=== PATIENT | male | born 1960 | race Two or more races ===

== ENCOUNTER 2023-02-18 03:57 | Inpatient (IN) | payer MEDICARE, OTHER ==
[2023-02-18] MEDS ORDERED: IV NS 0.9% 1,000 ML IV SCH (07:00)
[2023-02-18] MEDS ORDERED: ACETAMINOPHEN 325 MG TABLET PO PRN (07:00)
[2023-02-18] MEDS ORDERED: MORPHINE SULFATE INJ 2 MG/ML DISP.SYRIN IV PRN (07:00)
[2023-02-18] MEDS ORDERED: ONDANSETRON HCL/PF 4 MG/2 ML VIAL IVP PRN (07:00)
[2023-02-18] MEDS ORDERED: GABA300C PO (07:05)
[2023-02-18] MEDS ORDERED: OLAN10TA3 PO (07:05)
[2023-02-18] MEDS ORDERED: TRAZ150T75 PO (07:05)
[2023-02-18] MEDS ORDERED: MEGE40TA5 PO (07:05)
[2023-02-18] MEDS ORDERED: ESCI10TA PO (07:05)
[2023-02-18] MEDS ORDERED: ATOR10TA PO (07:05)
[2023-02-18] MEDS ORDERED: FERR325T23 PO (07:05)
[2023-02-18] MEDS ORDERED: QUET400T PO (07:05)
[2023-02-18] MEDS ORDERED: ZOLP10TA2 PO (07:05)
[2023-02-18] MEDS ORDERED: CHLO25TA13 PO (07:05)
[2023-02-18] MEDS ORDERED: ATEN-170 PO (07:05)
[2023-02-18] MEDS ORDERED: LISI20TA30 PO (07:05)
[2023-02-18] MEDS ORDERED: BUSP10TA35 PO (07:05)
[2023-02-18] MEDS ORDERED: CLON2TAB PO (07:05)
--- NOTE | 2023-02-18 07:42 | NUR ---
MS AIR BRUSH OPERATOR NOTES: PATIENT ARRIVED VIA GURNEY DIRECT ADMIT TO [facility] AT 0605 PLACED IN BED COMFORTABLY, BED IN LOW POSITION CALL LIGHTS WITHIN REACH, NO COMPLAIN OF PAIN AND DISCOMFORT AT THIS TIME, ON O2 INHALATION AT 3LPM SATURATING WELL, PATIENT ON NJ CATHETER WITH TINGED BLOOD URINE OUTPUT, PATIENT HAS ALTERED MENTAL STATUS, WITH HISTORY OF PULLING IV LINE AND NJ CATH FROM [place], SKIN ASSESSMENT DONE AND DOCUMENTED, NO MEANINGFUL INFORMATION WAS TAKEN PATIENT IS ALTERED, INVENTORY DONE C/O SQL TECH, IV LINE AT LEFT HAND #20 WITH ONGOING NSS@75ML/HR INFUSING WELL, ON BILATERAL SOFT WRIST RESTRAINT, PATIENT KEPT CLEAN AND DRY ALL NEEDS MET INFORM INCOMING NURSE NEW TO COORDINATE REGARDING MED RECON TO INCOMING CONSTRUCTION ECONOMIST HOSPITALIST AND TO REACH OUT WITH BROTHER ROSEANNE ABOUT HIS ADMISSION, PATIENT KEPT CLEAN AND DRY ALL NEEDS MET ENDORSE TO INCOMING SHIFT.
--- NOTE | 2023-02-18 08:04 | NUR ---
MS RN OPENING NOTE Patient in bed, awake. A/O x 1, confused. On O2 at 3 LPM via NC, no SOB or s/s of distress noted. IV access on Left hand #20, hooked on NS at 75 ml/hr. Shaikh catheter in place draining to a blood tinged urine. Bilateral soft wrist restraints noted. Safety precautions in place: bed in low, locked position; siderails up x 2; call light within reach. Will continue to monitor.
[2023-02-18 08:14] LABS: BASOPHILS % (AUTO) 0.1 % (0.0-2.0); EOSINOPHILS % (AUTO) 0.4 % (0.0-6.0); HEMATOCRIT 38 % (39-51); HEMOGLOBIN 12.5 g/dL (13.5-17.5); LYMPHOCYTES # (AUTO) 0.7 K/uL (0.8-4.8); MEAN CORPUSCULAR HGB CONC 33 g/dl (31.0-36.0); MEAN CORPUSCULAR VOLUME 93 fL (80-96); MONOCYTES # (AUTO) 0.7 K/uL (0.1-1.30); MONOCYTES % (AUTO) 7.7 % (2.0-12.0); NEUTROPHILS # (AUTO) 7.5 K/uL (1.8-8.9); NEUTROPHILS % (AUTO) 83.8 % (43.0-81.0); PLATELET COUNT (AUTO) 176 K/uL (150-450)
[2023-02-18 08:19] LABS: CALCIUM, SERUM 9.4 mg/dL (8.5-10.1); POTASSIUM 5.3 mmol/L (3.5-5.1)
[2023-02-18 08:27] LABS: ALBUMIN 3.4 g/dL (3.4-5.0); BILIRUBIN,TOTAL 0.5 mg/dL (0.2-1.0); TOTAL PROTEIN, SERUM 6.9 g/dL (6.4-8.2)
[2023-02-18 08:47] VITALS: BP 112/66; TEMP 98.4; O2SAT 96
[2023-02-18 10:50] LABS: BILIRUBIN,URINE NEGATIVE (NEGATIVE); COLOR,URINE YELLOW (YELLOW); LEUKOCYTE ESTERASE ,URINE NEGATIVE (NEGATIVE); NITRITE, URINE NEGATIVE (NEGATIVE); PROTEIN,URINE TRACE mg/dl (NEGATIVE); UGLUCOSE NEGATIVE (NEGATIVE); UROBILINOGEN,URINE 0.2 EU/dL (0.2)
[2023-02-18 11:05] LABS: BACTERIA,URINE Rare /HPF (None Seen); RBC,URINE 21-50 /HPF (0-2); SQUAMOUS EPITHELIAL CELL,UR Few /HPF (None Seen); WBC,URINE 0-2 /HPF (0-3)
[2023-02-18] MEDS: IV D5/0.45 NACL 1,000 ML IV PRN ×2 (11:31→13:38)
--- NOTE | 2023-02-18 11:51 | NUR ---
RN NOTE Spoke to Adi, brother, and confirmed that patient is a resident of [facility] at [address] [facility] [address], phone number is [phone]. Called facility to verify patient's medications, per Alia, she will fax the list of medications.
[2023-02-18] MEDS ORDERED: SODIUM POLYSTYRENE SULF. PWD 15 GM UDC PO ONE (13:30)
[2023-02-18 13:54] LABS: PHOSPHORUS 4.3 mg/dL (2.5-4.9)
[2023-02-18 14:18] LABS: THYROID STIMULATING HORMONE 0.224 uIU/mL (0.358-3.74)
[2023-02-18 14:54] LABS: CREATININE, URINE 103.6 MG/DL (30.0-125.0)
[2023-02-18 14:57] LABS: POTASSIUM 4.9 mmol/L (3.5-5.1)
[2023-02-18 15:03] LABS: IRON, SERUM 16 ug/dl (50-175); TOTAL IRON BINDING CAPACITY 181 ug/dl (250-450)
[2023-02-18 15:06] LABS: BILIRUBIN,URINE 1+ (NEGATIVE); COLOR,URINE YELLOW (YELLOW); LEUKOCYTE ESTERASE ,URINE NEGATIVE (NEGATIVE); NITRITE, URINE NEGATIVE (NEGATIVE); PROTEIN,URINE TRACE mg/dl (NEGATIVE); UGLUCOSE NEGATIVE (NEGATIVE); UROBILINOGEN,URINE 0.2 EU/dL (0.2)
[2023-02-18 16:17] LABS: BACTERIA,URINE None seen /HPF (None Seen); RBC,URINE 51-80 /HPF (0-2); SQUAMOUS EPITHELIAL CELL,UR 0-2 /HPF (None Seen); WBC,URINE 0-2 /HPF (0-3)
[2023-02-18 16:18] LABS: URINE AMORPHOUS URATE Few /HPF (None Seen)
[2023-02-18] MEDS: DOCUSATE SODIUM 100 MG CAPSULE PO SCH (16:24)
[2023-02-18] MEDS: FERROUS SULFATE (325 MG) 325 MG/TAB TABLET PO SCH (16:25)
[2023-02-18 16:58] VITALS: BP 109/64; TEMP 98.3; O2SAT 96
[2023-02-18] MEDS ORDERED: LORAZEPAM INJ 2 MG/ML VIAL IV ONE (19:00)
[2023-02-18] MEDS ORDERED: OLANZAPINE 10 MG VIAL IM ONE (19:00)
--- NOTE | 2023-02-18 19:00 | NUR ---
RN NOTE Patient started getting agitated, pulled his restraints and broke them started walking down the hallway and was very confused and agitated. Code melanie was called, 2 security and 2 male nurses tried to get him back in room and in bed. Dr. Dale notified and ordered Ativan 2 mg IV one time, medication administered. Patient started calming down and was restrained back to the bed. New IV re-inserted on LFA #20, hooked back on IV fluids. Shaikh catheter intact.
--- NOTE | 2023-02-18 19:22 | NUR ---
MS RN CLOSING NOTE Patient in bed, awake. A/O x 1, confused and a little agitated. On room air, no SOB or s/s of distress noted. IV access on LFA #20, infusing NS at 75 ml/hr. Shaikh catheter in place draining to a tea colored urine. Bilateral soft wrist restraints noted. Patient kept clean and dry. Due meds given. Safety precautions in place: bed in low, locked position; siderails up x 2; call light within reach. Will endorse to night auditor nurse for AARON.
--- NOTE | 2023-02-18 19:30 | NUR ---
MS RN OPENING NOTE RECEIVED PATIENT IN BED, AWAKE, ALERT TO SELF BUT CONFUSED AND NOTED WITH SLIGHT AGITATION. AFEBRILE AND NOT IN ANY FORM OF ACUTE DISTRESS. BREATHING EVEN AND NON LABORED. WITH IV ACCESS ON LFA 20G RUNNING WITH NS AT 75ML/HR. WITH INTACT NJ CATHETER, DRAINING WELL WITH [place] COLORED URINE OUTPUT. PATIENT IS ON BILATERAL SOFT WRIST RESTRAINTS SINCE PER REPORT, HE PULLED OUT HIS CATHETER AND DURING INITIAL ROUND, PATIENT TRIED TO PULL OUT HIS CATHETER AGAIN. SAFETY MEASURES IN PLACE. KEPT BED IN LOCKED AND IN LOW POSITION. SIDE RAILS UP X2. BED ALARM ON. CALL LIGHT WITHIN EASY REACH.
[2023-02-18 19:48] LABS: THYROID STIMULATING HORMONE 0.171 uIU/mL (0.358-3.74)
[2023-02-18 20:00] VITALS: BP 126/74; TEMP 98; O2SAT 94
--- NOTE | 2023-02-18 20:10 | NUR ---
MS RN NOTE PATIENT PULLED OUT HIS CATHETER AGAIN AND WAS ABLE TO REMOVED HIS RESTRAINTS. WENT INSIDE HIS ROOM TOGETHER WITH CN AND TALKED TO HIM IN A CALM MANNER. PATIENT STILL CONFUSED BUT WAS ABLE TO REDIRECTED AND FOLLOWS INSTRUCTION. INFORMED HIM ABOUT THE RISK OF PULLING HIS CATHETER SEVERAL TIMES DURING THE SHIFT AND WANTS TO JUST TOTALLY REMOVE IT. INSPECTED THE PENILE AREA AND NOTED WITH SLIGHT TRAUMA ON THE SITE. REMOVED THE CATHETER AND PATIENT TOLERATED THE PROCEDURE WELL, NO C/O PAIN AT THIS TIME.
[2023-02-18] MEDS ORDERED: QUETIAPINE FUMARATE 100 MG TABLET PO SCH (22:00)
[2023-02-18] MEDS: QUETIAPINE FUMARATE 100 MG TABLET PO SCH (22:00)
--- NOTE | 2023-02-18 22:00 | NUR ---
MS RN NOTE PATIENT EVENTUALLY CALMED DOWN AND IS SLEEPING RIGHT NOW. ORDER FOR SEROQUEL UNABLE TO GIVE AT THIS TIME. CN MADE AWARE.
--- NOTE | 2023-02-18 23:00 | NUR ---
MS RN NOTE PATIENT WOKE UP AND WAS CONFUSED. REORIENTED AND REDIRECTED. OFFERED SOMETHING TO EAT AND WAS ABLE TO GIVE SCHEDULED SEROQUEL. CN WAS ALSO AT BEDSIDE AND MADE AWARE ABOUT THE SITUATION. INSTRUCTED THE PATIENT TO GO BACK TO SLEEP AND TAKE A REST AND HE COMPLIED.
[2023-02-19] MEDS: QUETIAPINE FUMARATE 100 MG TABLET PO SCH (00:01)
[2023-02-19] MEDS ORDERED: OLANZAPINE 10 MG VIAL IM ONE (06:33)
--- NOTE | 2023-02-19 06:39 | NUR ---
MS RN NOTE PATIENT STARTED TO GET AGITATED AGAIN AND WAS CONFUSED AND COMBATIVE. OLANZAPINE 5MG STAND BY ORDER WAS GIVEN.
--- NOTE | 2023-02-19 07:00 | NUR ---
MS RN CLOSING NOTE PATIENT IN BED, SLEEPING RIGHT NOW. BREATHING EVEN AND NON LABORED. WITH IV ACCESS ON LFA 20G RUNNING WITH D5 1/2NS AT 90ML/HR. BUT PATIENT KEEP ON PULLING OUT HIS IV LINE THE ENTIRE SHIFT. ON BILATERAL SOFT WRIST RESTRAINTS, SKIN IS INTACT AND NOTED WITH GOOD SKIN CIRCULATION ON THE SITE. MEDICATED ORDERED. SAFETY MEASURES IN PLACE. KEPT BED IN LOCKED AND IN LOW POSITION. SIDE RAILS UP X2. BED ALARM ON. CALL LIGHT WITHIN EASY REACH. ALL NURSING NEEDS ATTENDED. ENDORSED TO INCOMING SHIFT FOR CONTINUITY OF CARE.
--- NOTE | 2023-02-19 07:15 | NUR ---
RN OPENING NOTE RECEIVED PATIENT IN BED, AWAKE, CONFUSED. NOTED WITH SLIGHT AGITATION AT THIS TIME. AFEBRILE AND NOT IN ANY FORM OF ACUTE DISTRESS. BREATHING EVEN AND NON LABORED. WITH IV ACCESS ON LFA 20G. PATIENT IS ON BILATERAL SOFT WRIST RESTRAINTS ATTEMPTING TO PULL PUT RESTRAINTS. USED NON EVASIVE MEASURES FIRST. SAFETY MEASURES IN PLACE. KEPT BED IN LOCKED AND IN LOW POSITION. SIDE RAILS UP X3. BED ALARM ON. CALL LIGHT WITHIN EASY REACH. WILL CONTINUE TO MONITOR.
[2023-02-19 07:30] VITALS: BP 121/73; TEMP 99.2; O2SAT 96
--- NOTE | 2023-02-19 07:30 | NUR ---
RN NOTE- PT AMBULATING UNSTEADY IN HALLS. NOT DIRECTABLE. ATTEMPTED TO HAVE PT GO TO ROOM W SECURITY, PT SCREAMING AND BECAME COMBATIVE. BROUGHT PT TO ROOM, PLACED IN FOUR POINT RESTRAINTS DUE TO KICKING AND PUNCHING. ONCE ZYPREXA IM INJECTION BEGAN WORKING, I REMOVED LEG RESTRAINTS. PT CALMER.
[2023-02-19] MEDS ORDERED: MEGESTROL ACETATE 40 MG TABLET PO SCH (09:00)
[2023-02-19] MEDS ORDERED: FERROUS SULFATE (325 MG) 325 MG/TAB TABLET PO SCH (09:00)
[2023-02-19] MEDS ORDERED: OLANZAPINE 10 MG TABLET PO SCH (09:00)
[2023-02-19] MEDS ORDERED: GABAPENTIN 300 MG CAPSULE PO SCH (09:00)
[2023-02-19] MEDS ORDERED: ESCITALOPRAM OXALATE (10 MG) 10 MG TABLET PO SCH (09:00)
[2023-02-19] MEDS: DOCUSATE SODIUM 100 MG CAPSULE PO SCH ×2 (09:41→16:53)
[2023-02-19] MEDS: MEGESTROL ACETATE SUSP 400 MG/10 ML UDC PO SCH (09:41)
[2023-02-19] MEDS: LISINOPRIL (20MG) 20 MG TABLET PO SCH (09:42)
[2023-02-19] MEDS: ATORVASTATIN 10 MG TABLET PO SCH (09:42)
[2023-02-19] MEDS: ATENOLOL 25 MG TABLET PO SCH (09:43)
[2023-02-19] MEDS: FERROUS SULFATE (325 MG) 325 MG/TAB TABLET PO SCH ×2 (09:43→16:53)
--- NOTE | 2023-02-19 09:59 | NUR ---
WOUND CARE CONSULT: PT PRESENTS WITH DRY ABRASIONS TO LOWER EXTREMITIES AND AREAS OF DISCOLORATION TO BILATERAL HIPS, PRESENT ON ADMISSION. DISCUSSED SKIN PROTECTION WITH NURSING STAFF. PT ABLE TO ASSIST WITH TURNING AND REPOSITIONING IN BED. MD IN AGREEMENT WITH PLAN OF CARE.
[2023-02-19] MEDS: NICOTINE PATCH (21MG) 21 MG PATCH.TD24 TD SCH (12:05)
[2023-02-19 15:40] LABS: BASOPHILS % (AUTO) 0.4 % (0.0-2.0); HEMATOCRIT 35 % (39-51); HEMOGLOBIN 11.6 g/dL (13.5-17.5); LYMPHOCYTES # (AUTO) 1.1 K/uL (0.8-4.8); LYMPHOCYTES % (AUTO) 14.8 % (20.0-44.0); MEAN CORPUSCULAR HGB CONC 33 g/dl (31.0-36.0); MEAN CORPUSCULAR VOLUME 93 fL (80-96); MONOCYTES # (AUTO) 0.8 K/uL (0.1-1.30); MONOCYTES % (AUTO) 10.1 % (2.0-12.0); NEUTROPHILS # (AUTO) 5.7 K/uL (1.8-8.9); NEUTROPHILS % (AUTO) 73.7 % (43.0-81.0); PLATELET COUNT (AUTO) 180 K/uL (150-450); RED BLOOD CELL COUNT(AUTO) 3.76 MIL/uL (4.5-6.0); WHITE BLOOD COUNT (AUTO) 7.8 K/uL (4.3-11.0)
[2023-02-19 15:56] LABS: ALBUMIN 3.2 g/dL (3.4-5.0); BILIRUBIN,TOTAL 0.6 mg/dL (0.2-1.0); CALCIUM, SERUM 9.4 mg/dL (8.5-10.1); CREATININE 1.6 mg/dL (0.6-1.3); MAGNESIUM 2.1 mg/dL (1.8-2.4); PHOSPHORUS 2.2 mg/dL (2.5-4.9); POTASSIUM 5.2 mmol/L (3.5-5.1); TOTAL PROTEIN, SERUM 6.7 g/dL (6.4-8.2)
[2023-02-19 16:00] VITALS: BP 143/74; TEMP 98.2; O2SAT 97
[2023-02-19] MEDS ORDERED: MULT-16 PO (16:26)
[2023-02-19] MEDS ORDERED: DOCU-141 PO (16:26)
--- NOTE | 2023-02-19 19:35 | NUR ---
RN OPENING NOTE RECEIVED PATIENT IN BED AAOX1 CONFUSED BROTHER AT BEDSIDE,NO SOB/DISTRESS NOTED,WITH IV ACCESS ON LFA 20G INTACT AND PATENT,SAFETY MEASURES IN PLACE. KEPT BED IN LOCKED AND IN LOW POSITION. SIDE RAILS UP X3. BED ALARM ON. CALL LIGHT WITHIN EASY REACH. WILL CONTINUE TO MONITOR.
[2023-02-19 20:48] VITALS: BP 137/74; TEMP 98.1; O2SAT 96
[2023-02-19] MEDS ORDERED: OLANZAPINE 5 MG TABLET PO SCH (22:00)
--- NOTE | 2023-02-20 06:27 | NUR ---
RN CLOSING NOTE; PATIENT IN BED AAOX1 CONFUSED,NO SOB/DISTRESS NOTED,NO COMPLAIN OF PAIN/DISCOMFORT DURING SHIFT,WITH IV ACCESS ON LFA 20G INTACT AND PATENT,DUE MEDS GIVEN ORDER,ALL NEEDS ATTENDED,PT SLEPT MOSTLY LAST NIGHT AND STAYED IN THE ROOM,NO SIGN OF AGITATION,SAFETY MEASURES IN PLACE. KEPT BED IN LOCKED AND IN LOW POSITION. SIDE RAILS UP X3. BED ALARM ON. CALL LIGHT WITHIN EASY REACH. WILL ENDORSED TO NEXT SHIFT.
--- NOTE | 2023-02-20 07:10 | NUR ---
RN OPENING NOTE RECEIVED PATIENT IN BED A/OX1 CONFUSED. NO SOB/DISTRESS NOTED,WITH IV ACCESS ON LFA 20G,SAFETY MEASURES IN PLACE. KEPT BED IN LOCKED AND IN LOW POSITION. SIDE RAILS UP X3. BED ALARM ON. CALL LIGHT WITHIN EASY REACH. WILL CONTINUE TO MONITOR.
[2023-02-20 07:35] LABS: BASOPHILS % (AUTO) 0.3 % (0.0-2.0); HEMATOCRIT 36 % (39-51); HEMOGLOBIN 11.9 g/dL (13.5-17.5); LYMPHOCYTES # (AUTO) 1.3 K/uL (0.8-4.8); LYMPHOCYTES % (AUTO) 18.7 % (20.0-44.0); MEAN CORPUSCULAR HGB CONC 34 g/dl (31.0-36.0); MEAN CORPUSCULAR VOLUME 92 fL (80-96); MONOCYTES # (AUTO) 0.7 K/uL (0.1-1.30); MONOCYTES % (AUTO) 9.2 % (2.0-12.0); NEUTROPHILS # (AUTO) 5.1 K/uL (1.8-8.9); NEUTROPHILS % (AUTO) 70.8 % (43.0-81.0); PLATELET COUNT (AUTO) 187 K/uL (150-450); RED BLOOD CELL COUNT(AUTO) 3.88 MIL/uL (4.5-6.0); WHITE BLOOD COUNT (AUTO) 7.1 K/uL (4.3-11.0)
[2023-02-20] MEDS: OLANZAPINE 10 MG TABLET PO SCH ×3 (07:38→21:57)
[2023-02-20 07:55] LABS: CALCIUM, SERUM 9.7 mg/dL (8.5-10.1); CREATININE 1.4 mg/dL (0.6-1.3); POTASSIUM 4.6 mmol/L (3.5-5.1)
[2023-02-20 07:58] LABS: ALBUMIN 3.3 g/dL (3.4-5.0); BILIRUBIN,TOTAL 0.7 mg/dL (0.2-1.0); TOTAL PROTEIN, SERUM 6.9 g/dL (6.4-8.2)
[2023-02-20 08:30] VITALS: BP 151/84; TEMP 98; O2SAT 100
[2023-02-20] MEDS: DOCUSATE SODIUM 100 MG CAPSULE PO SCH ×2 (08:45→16:42)
[2023-02-20] MEDS: MEGESTROL ACETATE SUSP 400 MG/10 ML UDC PO SCH (08:45)
[2023-02-20] MEDS: FERROUS SULFATE (325 MG) 325 MG/TAB TABLET PO SCH ×2 (08:45→16:42)
[2023-02-20] MEDS: ATORVASTATIN 10 MG TABLET PO SCH (08:45)
[2023-02-20] MEDS: NICOTINE PATCH (21MG) 21 MG PATCH.TD24 TD SCH (08:45)
[2023-02-20] MEDS: LISINOPRIL (20MG) 20 MG TABLET PO SCH (08:46)
[2023-02-20] MEDS: ATENOLOL 25 MG TABLET PO SCH (08:48)
[2023-02-20] MEDS: OLANZAPINE ZYDIS 5 MG TAB.RAPDIS PO PRN ×2 (12:26→12:32)
--- NOTE | 2023-02-20 12:30 | NUR ---
RN NOTE PT SEEN PACING IN HALLWAYS. TRIED TO ADMINISTER ZYPREXA PO BUT PT REFUSED. WILL CONTINUE TO MONITOR.
[2023-02-20] MEDS ORDERED: OLANZAPINE 10 MG VIAL IM ONE (13:00)
--- NOTE | 2023-02-20 13:10 | NUR ---
RN NOTE PT BECAME AGITATED. DR JOSE AWARE ABOUT AGGRESSION. PT TRIED GRABBING STAFF. ILDA ALLEN CALLED AT THIS TIME.
--- NOTE | 2023-02-20 13:35 | NUR ---
RN NOTE CURRENTLY POSTED OUTSIDE MONITORING PT [id number].
--- NOTE | 2023-02-20 13:50 | NUR ---
RN NOTE PT STILL IRRITABLE AND CONFRONTATIONAL. WILL CONTINUE TO MONITOR.
--- NOTE | 2023-02-20 14:05 | NUR ---
RN NOTE PT STILL IRRATIBLE AND CONFRONTATIONAL. WILL CONTINUE TO MONITOR.
--- NOTE | 2023-02-20 15:20 | NUR ---
RN NOTE- PT IRRITABLE, UNSAFE, THREATENING, NOT DIRECTABLE, TORE THROUGH RESTRAINTS AND WAS RUNNING DOWN MUIR. SECURITY CALLED, CODE TIFFANY CALLED. PT TAKEN TO FLOOR WITHOUT INJURY AND PLACED IN BED IN RESTRAINTS. HOUSE SUP CALLED. MD AWARE, PSYCHIATRIST AWARE. EMERGENCY IM RX ORDERED. HALDOL 10MG, ATIVAN 1 MG AND BENADRYL 50 MG IM STAT ORDERED. MEDS ADMINISTERED W SECURITY AND STAFF. DR URRUTIA ORDERED D5 BOLUS TO ADDRESS NA. CRISIS TEAM TO COME EVAL FOR POSSIBLE HOLD OR TRANSFER TO GPS. MONITORING PT.
[2023-02-20] MEDS ORDERED: LORAZEPAM INJ 2 MG/ML VIAL IV STA (15:24)
[2023-02-20] MEDS ORDERED: diphenhydrAMINE HCL 50 MG/ML VIAL IV STA (15:24)
--- NOTE | 2023-02-20 15:25 | NUR ---
RN NOTE 2ND CODE ALLEN CALLED AT THIS TIME. PT SEEN IN HALLWAY AGITATED AND CONFRONTATIONAL.
[2023-02-20] MEDS ORDERED: IV D5W 1,000 ML IV PRN (15:30)
[2023-02-20] MEDS ORDERED: HALOPERIDOL LACTATE INJ 5 MG/ML VIAL IM ONE (15:30)
[2023-02-20] MEDS: IV D5W 1,000 ML IV PRN ×2 (15:38→19:58)
--- NOTE | 2023-02-20 18:35 | NUR ---
RN CLOSING NOTE PATIENT IN BED A/OX1 CONFUSED. NO SOB/DISTRESS NOTED,WITH IV ACCESS ON RFA 18G. PT ON 2POINT RESTRAINTS. SHOWS SIGNS OF AGITATION AND ANGER. ALL NON PHYSICAL DIRECTIONS TRIED BEFORE RESTRAINTS AND NO IMPROVEMENT. CRISIS TEAM NOTIFIED AND WILL BE TRASFERING TO GPS DURING NOC SHIFT. SAFETY MEASURES IN PLACE. KEPT BED IN LOCKED AND IN LOW POSITION. SIDE RAILS UP X3. BED ALARM ON. CALL LIGHT WITHIN EASY REACH. BROTHER SEEN AT BEDSIDE AND ASSISTING WITH ACTIVITIES. WILL ENDORSE TO NOC SHIFT FOR AARON.
--- NOTE | 2023-02-20 19:45 | NUR ---
RN NOTE PATIENT TRANSFERRED FROM 3W, AWAKE, ORIENTED TO SELF. ON ROOM AIR, NO SOB/DISTRESS NOTED. ASSOCIATE CHEMIST SHOWING SINUS RHYTHM. IV ACCESS ON RFA #18G S/L, INTACT AND PATENT. RECEIVED PT IN 4 POINT NYLON RESTRAINTS, SKIN AND CIRCULATION CHECKED. VITAL SIGNS FOLLOWS: TEMP 98F, HR 84, RR 12, O2 SAT 95, BP 154/91. SAFETY MEASURES IN PLACE: BED LOCKED AND IN LOWEST POSITION, BED ALARM ON, SIDE RAILS UP X3.
[2023-02-20 20:00] VITALS: BP 154/91; TEMP 98; O2SAT 95
--- NOTE | 2023-02-20 20:00 | NUR ---
RN NOTE SPOKE WITH DR. JOSE AND RECEIVED NEW MED ORDERS.
--- NOTE | 2023-02-20 20:10 | NUR ---
RN NOTE PATIENT'S BROTHERORESTES AT BEDSIDE. PT IS CALM AND RESTING AT THE MOMENT.
[2023-02-20] MEDS ORDERED: BENZTROPINE MESYLATE (2MG/2ML) 2 MG/2 ML AMPUL IM PRN (20:30)
[2023-02-20] MEDS ORDERED: LORAZEPAM INJ 2 MG/ML VIAL IV PRN (20:30)
[2023-02-20] MEDS ORDERED: HALOPERIDOL LACTATE INJ 5 MG/ML VIAL IM PRN (20:30)
[2023-02-20 21:00] VITALS: BP 152/89; O2SAT 98
[2023-02-20 22:00] VITALS: BP 154/87; O2SAT 98
[2023-02-20 23:00] VITALS: BP 119/82; O2SAT 97
--- NOTE | 2023-02-20 23:55 | NUR ---
RN NOTE PATIENT IS COMBATIVE AND THREATENING STAFF, PRN ATIVAN 1MG AND PRN HALDOL 5MG ADMINISTERED.
[2023-02-21] VITALS (24 sets, daily range): BP systolic 119–157; BP diastolic 72–92; TEMP 98.2–98.8; O2SAT 97–100
--- NOTE | 2023-02-21 04:10 | NUR ---
RN NOTE PATIENT IS CALM AND FOLLOWS COMMANDS. RELEASED LOWER EXTREMITIES RESTRAINTS FOR NOW, BUT STILL UNDER CLOSE SUPERVISION.
[2023-02-21 05:13] LABS: BASOPHILS % (AUTO) 0.4 % (0.0-2.0); EOSINOPHILS % (AUTO) 1.2 % (0.0-6.0); HEMATOCRIT 34 % (39-51); HEMOGLOBIN 11.5 g/dL (13.5-17.5); LYMPHOCYTES # (AUTO) 1.9 K/uL (0.8-4.8); LYMPHOCYTES % (AUTO) 21.9 % (20.0-44.0); MEAN CORPUSCULAR HGB CONC 34 g/dl (31.0-36.0); MEAN CORPUSCULAR VOLUME 91 fL (80-96); MONOCYTES # (AUTO) 0.9 K/uL (0.1-1.30); MONOCYTES % (AUTO) 10.1 % (2.0-12.0); NEUTROPHILS # (AUTO) 5.8 K/uL (1.8-8.9); NEUTROPHILS % (AUTO) 66.4 % (43.0-81.0); PLATELET COUNT (AUTO) 182 K/uL (150-450); RED BLOOD CELL COUNT(AUTO) 3.72 MIL/uL (4.5-6.0); WHITE BLOOD COUNT (AUTO) 8.7 K/uL (4.3-11.0)
[2023-02-21 05:35] LABS: ALBUMIN 3.3 g/dL (3.4-5.0); BILIRUBIN,TOTAL 0.8 mg/dL (0.2-1.0); CALCIUM, SERUM 9.7 mg/dL (8.5-10.1); CREATININE 1.3 mg/dL (0.6-1.3); TOTAL PROTEIN, SERUM 6.8 g/dL (6.4-8.2)
[2023-02-21] MEDS: IV D5W 1,000 ML IV PRN ×2 (06:57→18:13)
--- NOTE | 2023-02-21 07:36 | NUR ---
RN CLOSING NOTE PATIENT IN BED, AWAKE, ORIENTED TO SELF. ON ROOM AIR, NO SOB/DISTRESS NOTED. ENTERPRISE APPLICATION DEVELOPER SHOWING SINUS RHYTHM. IV ACCESS ON RFA #18G INFUSING NS AT 90 ML/HR. HAS BILATERAL UPPER EXTREMITIES NYLON RESTRAINTS, SKIN AND CIRCULATION CHECKED Q2H. PT HAS BEEN CALM AND COOPERATIVE. SAFETY MEASURES IN PLACE: BED LOCKED AND IN LOWEST POSITION, BED ALARM ON, SIDE RAILS UP X3. Addendum: 02/21/23 at 0739 by RADHA JEFF RN ALL DUE MEDS WERE GIVEN AND NEEDS ATTENDED. ENDORSED TO AM NURSE FOR AARON
[2023-02-21] MEDS ORDERED: OLANZAPINE 5 MG TABLET PO SCH (08:00)
[2023-02-21] MEDS: DOCUSATE SODIUM 100 MG CAPSULE PO SCH ×2 (08:19→17:00)
[2023-02-21] MEDS: ATORVASTATIN 10 MG TABLET PO SCH (08:19)
[2023-02-21] MEDS: ATENOLOL 25 MG TABLET PO SCH (08:19)
[2023-02-21] MEDS: MEGESTROL ACETATE SUSP 400 MG/10 ML UDC PO SCH (08:19)
[2023-02-21] MEDS: FERROUS SULFATE (325 MG) 325 MG/TAB TABLET PO SCH ×2 (08:19→17:00)
[2023-02-21] MEDS: NICOTINE PATCH (21MG) 21 MG PATCH.TD24 TD SCH (08:20)
[2023-02-21] MEDS: LISINOPRIL (20MG) 20 MG TABLET PO SCH (08:20)
--- NOTE | 2023-02-21 09:30 | NUR ---
Pt remains on Psych hold. Pt refused blood draw - Ammonia level. and explains that blood was drawn earlier Explained importance of blood draw. Pt continues to refuse and appears to be getting upset as I continue to explain rational and reason why second blood draw is needed. PMD and psych MD notified and aware
[2023-02-21] MEDS: OLANZAPINE 5 MG TABLET PO SCH ×2 (13:00→17:00)
--- NOTE | 2023-02-21 13:22 | NUR ---
Pt refuse to take med as prescribed by psych MD. Explain the benefits to taking meds. Pt continues to refuse saying "I don't want to take them!!!"
--- NOTE | 2023-02-21 19:10 | NUR ---
RN OPENING NOTE PATIENT IN BED, AWAKE, ORIENTED TO SELF. ON ROOM AIR, NO SOB/DISTRESS NOTED. STEWARD/STEWARDESS TOURIST CLASS SHOWING SINUS RHYTHM. IV ACCESS ON RFA #18G INFUSING D5W AT 90 ML/HR. HAS BILATERAL UPPER EXTREMITIES HARD RESTRAINS, SKIN AND CIRCULATION CHECKED. PT APPEARS CALM AND COOPERATIVE. SAFETY MEASURES IN PLACE: BED LOCKED AND IN LOWEST POSITION, BED ALARM ON, SIDE RAILS UP X3. SITTER PRESENT AT THE BEDSIDE. WILL CONTINUE TO MONITOR
[2023-02-21] MEDS: OLANZAPINE 10 MG TABLET PO SCH (22:22)
[2023-02-22] VITALS (10 sets, daily range): BP systolic 133–151; BP diastolic 73–98; TEMP 98.6–98.8; O2SAT 97–99
[2023-02-22 04:20] LABS: BASOPHILS % (AUTO) 0.2 % (0.0-2.0); EOSINOPHILS % (AUTO) 1.4 % (0.0-6.0); HEMATOCRIT 35 % (39-51); HEMOGLOBIN 11.9 g/dL (13.5-17.5); LYMPHOCYTES # (AUTO) 1.1 K/uL (0.8-4.8); LYMPHOCYTES % (AUTO) 16.3 % (20.0-44.0); MEAN CORPUSCULAR HGB CONC 34 g/dl (31.0-36.0); MEAN CORPUSCULAR VOLUME 91 fL (80-96); MONOCYTES # (AUTO) 0.5 K/uL (0.1-1.30); MONOCYTES % (AUTO) 7.7 % (2.0-12.0); NEUTROPHILS # (AUTO) 5.2 K/uL (1.8-8.9); NEUTROPHILS % (AUTO) 74.4 % (43.0-81.0); PLATELET COUNT (AUTO) 191 K/uL (150-450); RED BLOOD CELL COUNT(AUTO) 3.86 MIL/uL (4.5-6.0); WHITE BLOOD COUNT (AUTO) 6.9 K/uL (4.3-11.0)
[2023-02-22 04:46] LABS: CALCIUM, SERUM 9.4 mg/dL (8.5-10.1); CREATININE 1.2 mg/dL (0.6-1.3); MAGNESIUM 1.6 mg/dL (1.8-2.4); PHOSPHORUS 2.7 mg/dL (2.5-4.9); POTASSIUM 3.4 mmol/L (3.5-5.1)
[2023-02-22] MEDS: IV D5W 1,000 ML IV PRN (05:33)
--- NOTE | 2023-02-22 06:50 | NUR ---
RN CLOSING NOTE PATIENT IN BED, AWAKE, ORIENTED TO SELF. ON ROOM AIR, NO SOB/DISTRESS NOTED. ARCHITECTURAL ADMINISTRATIVE ASSISTANT SHOWING SINUS RHYTHM. IV ACCESS ON RFA #18G INFUSING D5W AT 90 ML/HR. HAS BILATERAL UPPER EXTREMITIES HARD RESTRAINS, SKIN AND CIRCULATION CHECKED. PT APPEARS CALM AND COOPERATIVE. OLANZAPINE ADMINISTERED AT 2200, NO PRN MEDICATIONS GIVEN. SAFETY MEASURES IN PLACE: BED LOCKED AND IN LOWEST POSITION, BED ALARM ON, SIDE RAILS UP X3. SITTER PRESENT AT THE BEDSIDE, WILL LEAVE AT 0700. WILL ENDORSE TO THE NEXT SHIFT FOR AARON
[2023-02-22] MEDS: OLANZAPINE 5 MG TABLET PO SCH ×2 (09:50→13:42)
[2023-02-22] MEDS: MEGESTROL ACETATE SUSP 400 MG/10 ML UDC PO SCH (09:51)
[2023-02-22] MEDS: ATORVASTATIN 10 MG TABLET PO SCH (09:51)
[2023-02-22] MEDS: FERROUS SULFATE (325 MG) 325 MG/TAB TABLET PO SCH (09:51)
[2023-02-22] MEDS: DOCUSATE SODIUM 100 MG CAPSULE PO SCH (09:51)
[2023-02-22] MEDS: ATENOLOL 25 MG TABLET PO SCH (09:52)
[2023-02-22] MEDS: NICOTINE PATCH (21MG) 21 MG PATCH.TD24 TD SCH (09:52)
[2023-02-22] MEDS: LISINOPRIL (20MG) 20 MG TABLET PO SCH (09:52)
[2023-02-22] MEDS ORDERED: MAGNESIUM OXIDE 400 MG TABLET PO ONE (11:00)
[2023-02-22] MEDS ORDERED: POTASSIUM CHLORIDE 20 MEQ TAB.PRT.SR PO ONE (11:00)
[2023-02-22] MEDS ORDERED: CHLO25TA13 PO (15:51)
[2023-02-23 07:07] LABS: VITAMIN B1 THIAMINE,WB 150.9 nmol/L (66.5-200.0)
== END 2023-02-22 16:22 | DRG 682 ==
LOC: MED 05:44 → ICU 02-20 19:13 → GPS 02-22 14:16 → ICU 02-22 14:28
PROVIDERS: ADMIT Nurse Practitioner Acute Care; ATTEND Nurse Practitioner Family
DX: N17.0 Acute kidney failure with tubular necrosis (principal); G93.41 Metabolic encephalopathy; E87.0 Hyperosmolality and hypernatremia; F05 Delirium due to known physiological condition; I12.9 Hypertensive chronic kidney disease with stage 1 through stage 4 chronic kidney disease, or unspecified chronic kidney disease; N18.9 Chronic kidney disease, unspecified; E78.5 Hyperlipidemia, unspecified; D63.8 Anemia in other chronic diseases classified elsewhere; E87.5 Hyperkalemia; F32.A Depression, unspecified; F12.90 Cannabis use, unspecified, uncomplicated; F25.0 Schizoaffective disorder, bipolar type; F29 Unspecified psychosis not due to a substance or known physiological condition; I95.9 Hypotension, unspecified; N28.1 Cyst of kidney, acquired
CPT/HCPCS: 36415; 71045-TC; 80048-TC; 80053-TC; 81001; 82533; 82570-TC; 82607-TC; 83540-TC; 83605-TC; 83735-TC; 84100-TC; 84132-TC; 84295-TC; 84300-TC; 84425; 84439-TC; 84443-TC; 84481; 85025-TC; 87040-TC; 87081-TC; 93307-TC; 97112-TC; 97116-TC; 97530-TC; A4223; G0378; J1200; J1630; J2060; J3490; J7030; J7042; J7070

== ENCOUNTER 2023-02-22 15:06 | Inpatient (IN) | payer MEDICARE, OTHER ==
[~2023-02-22] VITALS: Ht 185.4 cm; Wt 84.4 kg
[~2023-02-22 15:06] MED LIST: ATEN-170 PO; ATOR10TA PO; BUSP10TA35 PO; CHLO25TA13 PO; CLON2TAB PO; DOCU-141 PO; ESCI10TA PO; FERR325T23 PO; GABA300C PO; LISI20TA30 PO; MEGE40TA5 PO; MULT-16 PO; OLAN10TA3 PO; QUET400T PO; TRAZ150T75 PO; ZOLP10TA2 PO
[2023-02-22] MEDS ORDERED: MAG HYDROX/AL HYDROX/SIMETH 30 ML UDC PO PRN (15:30)
[2023-02-22] MEDS ORDERED: MAGNESIUM HYDROXIDE 30 ML UDC PO PRN (15:30)
[2023-02-22] MEDS ORDERED: CHLO25TA13 PO (15:51)
[2023-02-22 16:00] VITALS: BP 155/91; TEMP 100.2; O2SAT 100
[2023-02-22] MEDS: ACETAMINOPHEN 325 MG TABLET PO PRN (17:04)
[2023-02-22] MEDS: LORAZEPAM 0.5 MG TABLET PO PRN (17:04)
[2023-02-22 20:00] VITALS: BP 136/79; TEMP 97.6; O2SAT 99
[2023-02-22] MEDS: OLANZAPINE 10 MG TABLET PO SCH (21:05)
[2023-02-23 07:39] LABS: ALBUMIN 3.5 g/dL (3.4-5.0); BILIRUBIN,TOTAL 0.6 mg/dL (0.2-1.0); CALCIUM, SERUM 9.4 mg/dL (8.5-10.1); CREATININE 1.4 mg/dL (0.6-1.3); POTASSIUM 3.9 mmol/L (3.5-5.1); TOTAL PROTEIN, SERUM 7.3 g/dL (6.4-8.2)
[2023-02-23 08:00] VITALS: BP 121/77; TEMP 97.7; O2SAT 98
[2023-02-23] MEDS: OLANZAPINE 5 MG TABLET PO SCH ×3 (08:34→16:30)
[2023-02-23 16:00] VITALS: BP 126/72; TEMP 98.1; O2SAT 99
[2023-02-23] MEDS: OLANZAPINE 10 MG TABLET PO SCH (21:45)
[2023-02-23] MEDS: LORAZEPAM 0.5 MG TABLET PO PRN (21:48)
[2023-02-24 08:00] VITALS: BP 141/81; TEMP 97.9; O2SAT 99
[2023-02-24] MEDS: ATENOLOL 25 MG TABLET PO SCH (08:11)
[2023-02-24] MEDS: DOCUSATE SODIUM 100 MG CAPSULE PO SCH ×2 (08:11→16:34)
[2023-02-24] MEDS: OLANZAPINE 5 MG TABLET PO SCH ×3 (08:11→16:35)
[2023-02-24] MEDS: FERROUS SULFATE (325 MG) 325 MG/TAB TABLET PO SCH ×2 (08:11→16:34)
[2023-02-24] MEDS: MULTIVITAMINS,THERAGRAN 1 UDTAB TABLET PO SCH (08:11)
[2023-02-24] MEDS: MEGESTROL ACETATE 40 MG TABLET PO SCH (08:11)
[2023-02-24] MEDS: LORAZEPAM 0.5 MG TABLET PO PRN ×3 (09:21→22:35)
[2023-02-24] MEDS: DIVALPROEX SODIUM 250 MG TABLET.DR PO SCH ×2 (12:15→16:35)
[2023-02-24 16:00] VITALS: BP 161/89; TEMP 98; O2SAT 98
[2023-02-24 16:49] VITALS: BP 147/76
[2023-02-24 20:00] VITALS: BP 132/83; TEMP 98; O2SAT 98
[2023-02-24] MEDS: OLANZAPINE 10 MG TABLET PO SCH (21:07)
[2023-02-24] MEDS: ATORVASTATIN 10 MG TABLET PO SCH (21:07)
[2023-02-25 08:00] VITALS: BP 155/99; TEMP 97.8; O2SAT 98
[2023-02-25] MEDS: MEGESTROL ACETATE 40 MG TABLET PO SCH (09:11)
[2023-02-25] MEDS: OLANZAPINE 5 MG TABLET PO SCH ×3 (09:12→16:23)
[2023-02-25] MEDS: ATENOLOL 25 MG TABLET PO SCH (09:12)
[2023-02-25] MEDS: DOCUSATE SODIUM 100 MG CAPSULE PO SCH ×2 (09:12→16:23)
[2023-02-25] MEDS: MULTIVITAMINS,THERAGRAN 1 UDTAB TABLET PO SCH (09:12)
[2023-02-25] MEDS: DIVALPROEX SODIUM 250 MG TABLET.DR PO SCH ×3 (09:12→16:23)
[2023-02-25] MEDS: FERROUS SULFATE (325 MG) 325 MG/TAB TABLET PO SCH ×2 (09:13→16:23)
[2023-02-25] MEDS: ACETAMINOPHEN 325 MG TABLET PO PRN (12:36)
[2023-02-25 16:00] VITALS: BP 143/79; TEMP 98.1; O2SAT 98
[2023-02-25] MEDS: LORAZEPAM 0.5 MG TABLET PO PRN (19:22)
[2023-02-25 21:11] VITALS: BP 146/63; TEMP 98.4; O2SAT 98
[2023-02-25] MEDS: OLANZAPINE 10 MG TABLET PO SCH (21:17)
[2023-02-25] MEDS: ATORVASTATIN 10 MG TABLET PO SCH (21:17)
[2023-02-26 08:00] VITALS: BP 144/77; TEMP 98; O2SAT 98
[2023-02-26] MEDS: OLANZAPINE 5 MG TABLET PO SCH ×3 (08:28→17:46)
[2023-02-26] MEDS: MULTIVITAMINS,THERAGRAN 1 UDTAB TABLET PO SCH (08:28)
[2023-02-26] MEDS: MEGESTROL ACETATE 40 MG TABLET PO SCH (08:29)
[2023-02-26] MEDS: DIVALPROEX SODIUM 250 MG TABLET.DR PO SCH ×3 (08:29→17:46)
[2023-02-26] MEDS: FERROUS SULFATE (325 MG) 325 MG/TAB TABLET PO SCH ×2 (08:29→17:46)
[2023-02-26] MEDS: DOCUSATE SODIUM 100 MG CAPSULE PO SCH ×2 (08:29→17:46)
[2023-02-26] MEDS: ATENOLOL 25 MG TABLET PO SCH (08:29)
[2023-02-26] MEDS: LORAZEPAM 0.5 MG TABLET PO PRN ×2 (15:30→21:23)
[2023-02-26 16:00] VITALS: BP 140/72; TEMP 98; O2SAT 100
[2023-02-26 20:00] VITALS: BP 146/74; TEMP 98.2; O2SAT 99
[2023-02-26] MEDS: OLANZAPINE 10 MG TABLET PO SCH (21:23)
[2023-02-26] MEDS: ATORVASTATIN 10 MG TABLET PO SCH (21:23)
[2023-02-27 06:37] LABS: BASOPHILS # (AUTO) 0.1 K/uL (0.0-0.2); BASOPHILS % (AUTO) 0.7 % (0.0-2.0); EOSINOPHILS % (AUTO) 1.3 % (0.0-6.0); HEMATOCRIT 34 % (39-51); HEMOGLOBIN 11.5 g/dL (13.5-17.5); LYMPHOCYTES # (AUTO) 2.3 K/uL (0.8-4.8); LYMPHOCYTES % (AUTO) 28.5 % (20.0-44.0); MEAN CORPUSCULAR HGB CONC 34 g/dl (31.0-36.0); MEAN CORPUSCULAR VOLUME 91 fL (80-96); MONOCYTES # (AUTO) 0.9 K/uL (0.1-1.30); NEUTROPHILS # (AUTO) 4.7 K/uL (1.8-8.9); NEUTROPHILS % (AUTO) 58.5 % (43.0-81.0); PLATELET COUNT (AUTO) 238 K/uL (150-450); RED BLOOD CELL COUNT(AUTO) 3.78 MIL/uL (4.5-6.0)
[2023-02-27 07:11] LABS: ALBUMIN 3.2 g/dL (3.4-5.0); BILIRUBIN,TOTAL 0.5 mg/dL (0.2-1.0); CALCIUM, SERUM 9.6 mg/dL (8.5-10.1); CREATININE 1.1 mg/dL (0.6-1.3); POTASSIUM 4.3 mmol/L (3.5-5.1); TOTAL PROTEIN, SERUM 6.9 g/dL (6.4-8.2)
[2023-02-27 08:00] VITALS: BP 132/85; TEMP 98.1; O2SAT 98
[2023-02-27] MEDS: DOCUSATE SODIUM 100 MG CAPSULE PO SCH ×2 (09:49→17:13)
[2023-02-27] MEDS: MULTIVITAMINS,THERAGRAN 1 UDTAB TABLET PO SCH (09:49)
[2023-02-27] MEDS: OLANZAPINE 5 MG TABLET PO SCH ×3 (09:49→17:13)
[2023-02-27] MEDS: DIVALPROEX SODIUM 250 MG TABLET.DR PO SCH ×3 (09:50→17:13)
[2023-02-27] MEDS: MEGESTROL ACETATE 40 MG TABLET PO SCH (09:50)
[2023-02-27] MEDS: FERROUS SULFATE (325 MG) 325 MG/TAB TABLET PO SCH ×2 (09:50→17:13)
[2023-02-27] MEDS: ATENOLOL 25 MG TABLET PO SCH (09:51)
[2023-02-27] MEDS: LORAZEPAM 0.5 MG TABLET PO PRN (09:59)
[2023-02-27 16:00] VITALS: BP 127/84; TEMP 98.2; O2SAT 96
[2023-02-27 20:25] VITALS: BP 139/41; TEMP 98.2; O2SAT 100
[2023-02-27] MEDS: ATORVASTATIN 10 MG TABLET PO SCH (21:17)
[2023-02-27] MEDS: OLANZAPINE 10 MG TABLET PO SCH (21:17)
[2023-02-28] MEDS: LORAZEPAM 0.5 MG TABLET PO PRN ×2 (02:27→16:38)
[2023-02-28] MEDS: ACETAMINOPHEN 325 MG TABLET PO PRN ×2 (03:33→18:21)
[2023-02-28 08:00] VITALS: BP 144/84; TEMP 98.1; O2SAT 96
[2023-02-28] MEDS: DOCUSATE SODIUM 100 MG CAPSULE PO SCH ×2 (08:35→16:52)
[2023-02-28] MEDS: DIVALPROEX SODIUM 250 MG TABLET.DR PO SCH ×3 (08:35→16:52)
[2023-02-28] MEDS: FERROUS SULFATE (325 MG) 325 MG/TAB TABLET PO SCH ×2 (08:35→16:52)
[2023-02-28] MEDS: ATENOLOL 25 MG TABLET PO SCH (08:36)
[2023-02-28] MEDS: OLANZAPINE 5 MG TABLET PO SCH ×3 (08:36→16:52)
[2023-02-28] MEDS: MEGESTROL ACETATE 40 MG TABLET PO SCH (08:36)
[2023-02-28] MEDS: MULTIVITAMINS,THERAGRAN 1 UDTAB TABLET PO SCH (08:40)
[2023-02-28 16:00] VITALS: BP 116/73; TEMP 97.7; O2SAT 98
[2023-02-28 20:12] VITALS: BP 135/76; TEMP 98.1; O2SAT 99
[2023-02-28] MEDS: OLANZAPINE 10 MG TABLET PO SCH (21:07)
[2023-02-28] MEDS: ATORVASTATIN 10 MG TABLET PO SCH (21:07)
[2023-03-01 08:00] VITALS: BP 139/79; TEMP 97.7; O2SAT 98
[2023-03-01] MEDS: MULTIVITAMINS,THERAGRAN 1 UDTAB TABLET PO SCH (08:04)
[2023-03-01] MEDS: FERROUS SULFATE (325 MG) 325 MG/TAB TABLET PO SCH (08:04)
[2023-03-01] MEDS: MEGESTROL ACETATE 40 MG TABLET PO SCH (08:04)
[2023-03-01] MEDS: DIVALPROEX SODIUM 250 MG TABLET.DR PO SCH ×2 (08:04→11:51)
[2023-03-01] MEDS: DOCUSATE SODIUM 100 MG CAPSULE PO SCH (08:04)
[2023-03-01] MEDS: OLANZAPINE 5 MG TABLET PO SCH ×2 (08:04→11:51)
[2023-03-01 08:05] VITALS: BP 139/79
[2023-03-01] MEDS: ATENOLOL 25 MG TABLET PO SCH (08:05)
== END 2023-03-01 11:50 | DRG 885 ==
LOC: GPS 15:06 → UNDODISIN 16:18 → GPS 18:06
PROVIDERS: ADMIT Psychiatry & Neurology Psychosomatic Medicine; ATTEND Internal Medicine
DX: F25.0 Schizoaffective disorder, bipolar type (principal); N17.0 Acute kidney failure with tubular necrosis; N18.9 Chronic kidney disease, unspecified; G93.41 Metabolic encephalopathy; E87.0 Hyperosmolality and hypernatremia; F29 Unspecified psychosis not due to a substance or known physiological condition; F41.9 Anxiety disorder, unspecified; R41.9 Unspecified symptoms and signs involving cognitive functions and awareness; I12.9 Hypertensive chronic kidney disease with stage 1 through stage 4 chronic kidney disease, or unspecified chronic kidney disease; E87.5 Hyperkalemia; E78.5 Hyperlipidemia, unspecified; F32.A Depression, unspecified; D63.8 Anemia in other chronic diseases classified elsewhere; F12.90 Cannabis use, unspecified, uncomplicated
CPT/HCPCS: 36415; 80053-TC; 80061-TC; 80164-TC; 85025-TC